=== PATIENT | female | born 2000 | race Caucasian/White ===

== ENCOUNTER 2020-08-26 20:52 | Emergency (ER) | payer BC ==
[2020-08-26 22:39] LABS: HEMOGLOBIN 14.3 gm/dl (12.3-15.3); RED BLOOD COUNT 5.22 M/UL (4.00-5.10); WHITE BLOOD COUNT 7.3 K/UL (4.5-11.0)
[2020-08-26 22:53] LABS: BUN/CREATININE RATIO 15 (0-10)
[2020-08-27] MEDS ORDERED: BENTYL 10MG CAP10 MG PO (01:57)
[2020-08-27] MEDS ORDERED: IBUPROFEN800 MG PO (01:57)
[2020-08-27] MEDS ORDERED: COLACE 100MG C100 MG PO (01:57)
[2020-08-27] MEDS ORDERED: ZOFRAN ODT 4 MG4 MG PO (01:57)
[2020-08-27] MEDS ORDERED: OMNICEF 300 MG300 MG PO (02:00)
== END 2020-08-27 02:19 | disposition home or self-care (01) ==
LOC: ER1 20:52
PROVIDERS: Physician Assistant Medical
DX: R10.11 Right upper quadrant pain (principal); R11.0 Nausea; Z79.899 Other long term (current) drug therapy
CPT/HCPCS: 80053; 81001; 84703; 85025; 99284; Q9967